=== PATIENT | male | born 1955 | race Caucasian/White ===

== ENCOUNTER → 2023-09-13 14:20 | Outpatient (REF) | payer MEDICARE, OTHER, SELFPAY | LOC: HWRAD 14:20 | PROVIDERS: ATTENDING PHYSICIAN Surgery; FAMILY PHYSICIAN Nurse Practitioner Family | DX: R10.31 Right lower quadrant pain (principal); R10.32 Left lower quadrant pain | CPT/HCPCS: 74177; Q9967 ==

== ENCOUNTER 2024-01-16 09:39 | Emergency (ER) | payer MEDICARE, OTHER, SELFPAY ==
[2024-01-16 09:44] VITALS: BP 153/76
--- NOTE | 2024-01-16 10:50 | ED.GENMED ---
History of Present Illness
General
Chief Complaint: Head Injury
Source: patient
Exam Limitations: none
Time Seen by Provider: 01/16/24 10:10
Nursing documentation reviewed up to this point in time: agreed with
History of Present Illness
History of Present Illness:
The patient is a very pleasant 68-year-old man who presents 5 days after a large branch fell down about 12 feet onto the left side of his head. Patient reports that he was cutting a branch down and it fell right down on him. Patient reports that
he almost lost consciousness but did not. He denies nausea, vomiting, weakness and numbness. Patient reports that he has had headaches on the left side of his head as well as light sensitivity since the injury. He also has now noticed swelling
and drooping of the left eyelid and under the left eye. Patient reports that he should have come sooner but he was observing his symptoms at home. He denies being on any blood thinners including aspirin and Plavix. Patient reports he has been
walking around without dizziness or any issues. He reports he drove here to the hospital. Patient denies acute vision changes of left eye and double vision
Past History
Past History
ED Past Medical History: HTN, Hypercholesterolemia, NIDDM and Other (Chronic low back pain)
ED Past Surgical History: Other (Inguinal hernia repair)
Social History
Tobacco: Non-smoker
Alcohol: Occasional
Drug: None
Personal: Other
Living: alone
Employment: Employed
Family History
Family History: Other (Noncontributory)
Review of Systems
Review of Systems
Allergies reviewed?: Yes
All Other Systems: ROS reviewed and negative except as documented in HPI and ROS
Constitutional: Reports no symptoms
EENT: Reports other (Swelling of left upper and lower eyelid)
Respiratory: Reports no symptoms
Cardiac: Reports no symptoms
ABD/GI: Reports no symptoms
: Reports no symptoms
Musculoskeletal: Reports neck pain (Left-sided neck pain)
Skin: Reports no symptoms
Neurological: Reports headache
Endocrine: Reports no symptoms
Hematologic/Lymphatic: Reports bruising
Psychiatric: Reports no symptoms
Phy Exam
Physical Exam
Physical Exam:
Physical Exam
General: no apparent distress, not acutely ill. Left frontal scalp contusion with overlying scab.
Neck: supple. No midline spine tenderness including cervical spine, thoracic spine and lumbar spine. Mild left lateral soft tissue neck tenderness without deformity or ecchymoses. Ecchymotic left upper eyelid and
significant swelling of left lower eyelid
Heart: s1/s2 regular rate and rhythm, no murmur. equal radial pulses.
Lungs: no acute respiratory distress. clear bilaterally
Abdomen: Soft, nontender
Neuro: alert and orientedx3. no focal neurological deficits. Extraocular muscles intact. PERRL, 5 out of 5 strength in all extremities. Steady gait. No nystagmus. No hyphema seen, no left conjunctival hemorrhage
Skin: Very small superficial abrasion just above left eyebrow
Psychiatric: well kept. interactive and cooperative
Extremities: no edema. no calf tenderness. negative homans. good distal pulses
Course
Orders/Labs/Results
Orders:
Orders
01/16/24 10:44
CT Facial Bones W/o Iv Contras Urgent
Comment:
Reason For Exam: branch fell on head, swelling around L face
CT Head W/o Iv Contrast Urgent
Comment:
Reason For Exam: head injury from 5 days ago
01/16/24 11:03
Acetaminophen [Tylenol] 1,000 mg PO NOW STA
Vital Signs
Initial and Last Documented VS:
Initial Vital Signs
Temp Pulse Resp BP Pulse Ox
98.6 F 69 18 153/76 97
01/16/24 09:44 01/16/24 09:44 01/16/24 09:44 01/16/24 09:44 01/16/24 09:44
Last Documented Vital Signs
Temp Pulse Resp BP Pulse Ox
98.6 F 54 16 127/60 97
01/16/24 09:44 01/16/24 11:35 01/16/24 11:35 01/16/24 11:35 01/16/24 11:35
MDM/Problems Addressed
Differential Diagnosis Includes:
Subdural hematoma, orbital wall fracture, facial contusion
MDM/Problems Addressed:
Patient presents with acute headache, and acute contusion and swelling around his left eye
Chronic conditions affecting care: HTN
Acute Exacerbation and/or Progression of Chronic Illness:
Patient is acutely hypertensive, likely due to pain and anxiety being in the ED
Acute Exacerbation and/or Progression of Chronic Illness: HTN
*Radiology
Radiology exam reviewed: radiology read reviewed
*Pulse Oximetry
Patient hypoxic: no
*EKG
Interpreted by ED Provider?: NA
*Market Basket Maker Interpretation
Rate: Market Basket Maker- N/A
*Critical Care Note
Total Time (30-74mins, 75-104mins- exclusive of procedures): Not Applicable
Data Reviewed
Review of Other/Old Records Reveals: Operative Reports (Reviewed operative report from 2022 when patient underwent inguinal hernia repair surgery)
Source: patient
Patient Management
Social determinants of health affecting care: Strong social support
Escalation/DeEscalation of care consider admission/obs:
Patient continues to look well without any nausea, visual changes, weakness or numbness. Head injury occurred 5 days ago and fortunately CAT scan of head shows no sign of intracranial hemorrhage such as a subdural hematoma.
ED Attending Note
-
Portions of this chart may have been created with voice recognition software.� Occasional wrong word or��sound alike� substitutions may have occurred due to the inherent limitations of voice recognition software.
Discharge Plan
Departure
Patient Disposition: Home (Routine Discharge)
Date of Disposition: 01/16/24
Time of Disposition: 12:36
Patient with high blood pressure during this ER visit?: Yes
Condition: Good
Covid-19: Not Applicable
Discharge Problem:
Closed head injury
Instructions: Head Injury in Adults (DC), BLOOD PRESSURE
Prescriptions:
New
oxycodone 5 mg tablet
5 mg PO BID PRN (Reason: Pain) Qty: 7 0RF
No Action
atorvastatin 10 MG tablet
10 mg PO DAILY
gabapentin 300 MG capsule
600 mg PO .IN A.M.
hydrocodone-acetaminophen 5-325 mg Tablet
1 tab PO Q6H PRN (Reason: discomfort)
terazosin 2 mg Capsule
2 mg PO HS
amlodipine 10 mg Tablet
10 mg PO DAILY
metformin 1,000 mg Tablet
1,000 mg PO BID
gabapentin 300 mg Capsule
300 mg PO .IN AFTERNOON
gabapentin 300 mg Capsule
600 mg PO QPM
lisinopril 5 mg Tablet
5 mg PO DAILY
glipizide 2.5 mg Tablet
2.5 mg PO DAILY
acetaminophen [acetaminophen] 325 mg tablet
650 mg PO Q4HPRN PRN (Reason: mild pain) Qty: 1 0RF
ibuprofen 200 mg tablet
400 - 600 mg PO Q6HPRN PRN (Reason: moderate pain) Qty: 1 0RF
Referrals:
Gwen Ray CRNP [Family Provider] -
Activity Restrictions/Additional Instructions:
Return for any nausea, vomiting or severe dizziness. Take 1000 mg of Tylenol every 4-6 hours for pain.
Interventions
Interventions:
*Risk Screen - Suicide Last Done: 01/16/24 10:14
*General Assessment Last Done: 01/16/24 09:46
*Neglect/Abuse Screening Last Done: 01/16/24 10:14
ED- Fall Risk Assessment Last Done: 01/16/24 10:16
*ED COVID-19 Vaccine History Last Done: 01/16/24 09:46
*Nursing Disposition Last Done: 01/16/24 12:49
ED- Neurological Assessment Last Done: 01/16/24 10:14
ED-Skin Assessment Last Done: 01/16/24 10:14
Discharge Date and Time
Discharge Date/Time: 01/16/24 12:50
Print Language: IVORIAN
[2024-01-16 11:00] VITALS: BP 127/60
[2024-01-16] MEDS: TYLENOL 1000 MG PO (11:09)
[2024-01-16 11:35] VITALS: BP 127/60
== END 2024-01-16 12:50 | disposition home or self-care (01) ==
LOC: EMR 09:39
PROVIDERS: EMERGENCY PHYSICIAN Emergency Medicine; FAMILY PHYSICIAN Nurse Practitioner Family
DX: S09.90XA Unspecified injury of head, initial encounter (principal); S00.03XA Contusion of scalp, initial encounter; R51.9 Headache, unspecified; M54.2 Cervicalgia; W20.8XXA Other cause of strike by thrown, projected or falling object, initial encounter; Y93.H2 Activity, gardening and landscaping; I10 Essential (primary) hypertension; E11.40 Type 2 diabetes mellitus with diabetic neuropathy, unspecified; E78.00 Pure hypercholesterolemia, unspecified; M54.50 Low back pain, unspecified; M19.90 Unspecified osteoarthritis, unspecified site; G89.29 Other chronic pain; Z79.84 Long term (current) use of oral hypoglycemic drugs; Z87.891 Personal history of nicotine dependence; Z88.6 Allergy status to analgesic agent; Z88.8 Allergy status to other drugs, medicaments and biological substances
CPT/HCPCS: 99284; 70450; 70486

== ENCOUNTER → 2024-01-28 07:00 | Outpatient (REF) | payer MEDICARE, OTHER, SELFPAY | LOC: HWRAD 07:00 | PROVIDERS: ATTENDING PHYSICIAN Nurse Practitioner Family | DX: N50.819 Testicular pain, unspecified (principal) | CPT/HCPCS: 76870; 93976 ==

== ENCOUNTER 2024-04-20 07:05 | Emergency (ER) | payer MEDICARE, OTHER, SELFPAY ==
[2024-04-20 07:15] VITALS: BP 144/79
[2024-04-20 08:43] VITALS: BP 160/70
[2024-04-20 08:57] LABS: % Basophils 0.9 % (0-2); % Eosinophils 2.4 % (0-6); % Immature Granulocytes 0.3 % (0-0.5); % Lymphocytes 17.7 % (20.5-51.1); % Monocytes 4.7 % (1.7-9.3); Absolute Basophils 0.1 10^3/uL (0-0.2); Absolute Eosinophils 0.2 10^3/uL (0-0.7); Absolute Lymphocytes 1.1 10^3/uL (1.2-3.4); Absolute Monocytes 0.3 10^3/uL (0.1-0.6); Absolute Neutrophils 4.7 10^3/uL (1.4-6.5); Hematocrit 36.6 % (39.0-52.0); Hemoglobin 12.2 g/dL (13.0-18.0); Mean Corp Hgb Conc. 33.3 g/dL (33.0-37.0); Mean Corpuscular Hgb 31.2 pg (27.0-31.0); Mean Corpuscular Volume 93.6 fL (80.0-94.0); Mean Platelet Volume 9.3 fL (7.4-10.4); Nucleated Red Blood Cells % 0 % (-); Platelet Count 232 10^3/uL (130-400); Red Blood Cell Count 3.91 10^6/uL (4.70-6.10); Red Cell Dist. Width 13.2 % (11.5-14.5); White Blood Cell Count 6.4 10^3/uL (4.8-10.8)
[2024-04-20 08:59] LABS: Urine Albumin Trace (Neg - Trace); Urine Bilirubin 1+ (Negative); Urine Character Clear (Clear); Urine Color Yellow; Urine Glucose Negative (Negative); Urine Ketone Negative (Negative); Urine Leukocyte Negative (Negative); Urine Nitrite Negative (Negative); Urine Occult Blood Negative (Negative); Urine Specific Gravity 1.025 (<1.030); Urine Urobilinogen Negative (Neg - 1+)
[2024-04-20 09:15] LABS: ALT (SGPT) 40 U/L (0-50); AST (SGOT) 41 U/L (17-59); Alkaline Phosphatase 53 U/L (38-126); Blood Urea Nitrogen 33 mg/dl (9-20); Calcium 9.6 mg/dl (8.4-10.2); Carbon Dioxide 26 mmol/L (22-30); Chloride 103 mmol/L (98-107); Glucose 159 mg/dl (70-99); Potassium 4.8 mmol/L (3.5-5.1); Sodium 144 mmol/L (135-145); Total Bilirubin 0.4 mg/dl (0.2-1.3); Total Protein 7.3 g/dl (6.3-8.2); eGFR > 60.00
--- NOTE | 2024-04-20 09:15 | ED.GENMED ---
History of Present Illness
General
Chief Complaint: Musculo-Skeletal Complaint
Time Seen by Provider: 04/20/24 08:06
History of Present Illness
History of Present Illness:
68-year-old male with history of ezm-garaswy-ojwyduyud diabetes presents to the emergency department for evaluation of acute onset right foot drop developing upon waking this morning. States he was ambulating well yesterday, was painting his house
and going up and down a ladder without difficulty. States this morning he nearly fell due to inability to raise the right foot. Has chronic back pain but denies any acute worsening. No saddle anesthesias or loss of urinary function. No fevers or
chills.
Past History
Past History
ED Past Medical History: HTN, Hypercholesterolemia, NIDDM and Other (Chronic low back pain)
ED Past Surgical History: Other (Inguinal hernia repair)
Social History
Tobacco: Non-smoker
Alcohol: Occasional
Drug: None
Personal: Other
Living: alone
Employment: Employed
Family History
Family History: Other (Noncontributory)
Review of Systems
Review of Systems
Allergies reviewed?: Yes
All Other Systems: ROS reviewed and negative except as documented in HPI and ROS
Phy Exam
Physical Exam
Physical Exam:
GEN: Well appearing, NAD, WDWN
HEENT: Oral mucosa moist, no scleral icterus, no nasal congestion
Cardiac: Regular rate
Lung: No respiratory distress, no tachypnea
MSK: No gross deformity or injuries
Skin: Good color, no pallor or jaundice, no rashes
Neuro: AO x3; CN II-XII grossly intact. BUE strength 5/5 in all olivas, sensation intact and symmetric. Significant right foot drop noted, patient unable to maintain right foot dorsiflexion against gravity, otherwise bilateral lower extremity
strength is 5 out of 5 in all olivas. Right patellar reflex diminished
Psych: Calm, cooperative
Course
Orders/Labs/Results
Orders:
Orders
04/20/24 08:27
CT Head W/o Iv Contrast Urgent
Comment:
Reason For Exam: R foot drop/toe paresthesia
04/20/24 08:41
Complete Blood Count/With Diff Urgent
Comprehensive Metabolic Panel Urgent
Urinalysis Reflex To Culture Urgent
Date Specimen was Collected: 04/20/24
Time Specimen was Collected: 08:34
04/20/24 09:10
Lumbar Without Contrast MR [MR Lumbar Without Contrast] Urgent
Comment:
Reason For Exam: acute right foot drop
Recent pill cam endoscopy?: No
04/20/24 13:30
B12 [Vitamin B12] Routine
CRP [C-Reactive Protein] Routine
ESR [Erythrocyte Sed Rate] Routine
Folate Routine
Protein Electrophoresis Reflex [S] Routine
Vitamin B1, Whole Blood [S] Routine
04/20/24 13:31
MRI Brain [MR Brain Without Contrast] Routine
Comment:
Reason For Exam: R foot drop
OK for patient to be off Cardiac Monitoring for MRI: No
Recent pill cam endoscopy?: No
04/20/24 13:42
Code Status As Directed
Resuscitation Status: Full Code
Abnormal Lab Results
04/20/24
08:41
RBC 3.91 L 10^6/uL
(4.70-6.10)
Hgb 12.2 L g/dL
(13.0-18.0)
Hct 36.6 L %
(39.0-52.0)
MCH 31.2 H pg
(27.0-31.0)
Absolute Lymphs (auto) 1.1 L 10^3/uL
(1.2-3.4)
Lymphocytes % 17.7 L %
(20.5-51.1)
BUN 33 H mg/dl
(9-20)
Glucose 159 H mg/dl
(70-99)
Urine Bilirubin 1+ A
(Negative)
04/20/24 08:41
04/20/24 08:41
Vital Signs
Initial and Last Documented VS:
Initial Vital Signs
Temp Pulse Resp BP Pulse Ox
97.6 F 81 16 144/79 98
04/20/24 07:15 04/20/24 07:15 04/20/24 07:15 04/20/24 07:15 04/20/24 07:15
Last Documented Vital Signs
Temp Pulse Resp BP Pulse Ox
97.6 F 85 18 134/86 98
04/20/24 14:12 04/20/24 14:12 04/20/24 11:19 04/20/24 14:12 04/20/24 14:12
MDM/Problems Addressed
MDM/Problems Addressed:
After neurology consultation the patient complained to be admitted after being seen by the hospitalist physician the patient did not want to stay for observation due to financial concerns. I have lengthy discussion with him about the likelihood
that this is severe L5 radiculopathy however cannot completely rule out the possibility of a small brain infarct. I find this to be less likely given the focality of his symptoms. Would recommend he start 81 mg aspirin daily and follow-up with his
primary care physician for brain MRI since he is opting for discharge home, may also benefit from orthopedic evaluation for outpatient EMG. Educated the patient on strict ED return parameters. He reiterated his concern for financial implications
and observation versus admission status after shared decision making the patient will be discharged home
*Critical Care Note
Total Time (30-74mins, 75-104mins- exclusive of procedures): Not Applicable
ED Attending Note
-
Portions of this chart may have been created with voice recognition software.� Occasional wrong word or��sound alike� substitutions may have occurred due to the inherent limitations of voice recognition software.
Discharge Plan
Departure
Patient Disposition: Home (Routine Discharge)
Date of Disposition: 04/20/24
Time of Disposition: 13:54
Admit to: Med/Surg
Patient with high blood pressure during this ER visit?: No
Discharge Problem:
Foot drop, right
Instructions: Foot Drop
Prescriptions:
No Action
atorvastatin 10 MG tablet
10 mg PO DAILY
gabapentin 300 MG capsule
600 mg PO DAILY
terazosin 2 mg Capsule
2 mg PO HS
amlodipine 10 mg Tablet
10 mg PO DAILY
metformin 1,000 mg Tablet
1,000 mg PO BID
gabapentin 300 mg Capsule
300 mg PO NOON
gabapentin 300 mg Capsule
600 mg PO HS
lisinopril 5 mg Tablet
5 mg PO DAILY
glipizide 2.5 mg Tablet
2.5 mg PO DAILY
methotrexate sodium 2.5 mg Tablet
5 mg PO TU
hydroxychloroquine [Plaquenil] 200 mg Tablet
400 mg PO DAILY
hydrocodone-acetaminophen 5-325 mg Tablet
1 tab PO Q6HPRN PRN (Reason: severe pain)
Patient Comments:
called [facility] patient fileld on 04/16/24 #[phone]
Referrals:
Gwen Ray CRNP [Family Provider] -
Activity Restrictions/Additional Instructions:
Follow up with your labor delivery specialist about the findings on your back MRI as this could be contributing to your symptoms
If your symptoms progress, please return to the ER
Interventions
Interventions:
*Risk Screen - Suicide Last Done: 04/20/24 07:15
*General Assessment Last Done: 04/20/24 08:30
*Neglect/Abuse Screening Last Done: 04/20/24 07:15
*ED COVID-19 Vaccine History Last Done: 04/20/24 08:30
*Nursing Disposition Last Done: 04/20/24 14:13
ED-Musculoskeletal Assessment Last Done: 04/20/24 08:30
Discharge Date and Time
Discharge Date/Time: 04/20/24 14:13
Print Language: VIETNAMESE
[2024-04-20 11:19] VITALS: BP 157/80
--- NOTE | 2024-04-20 13:07 | CON.NEURO ---
Consultation
Order
Date of Consultation: 04/20/24
Requesting Provider:
Reason for Consult: R foot drop
CC: foot weakness and numbness
HPI: This is a 68-year-old right-handed man who presented to [facility] on April 12, 2024 with motor and sensory deficits. According to the patient he developed sudden onset right foot weakness and constant numbness upon awakening
today in the morning. He has a history of polyneuropathy and takes gabapentin for intermittent tingling in his toes, but he states that the current tingling is constant and different from his usual. No reports of right arm motor or sensory
deficits, dysarthria or language dysfunction.
Mr. Montiel reports a history of nonradicular chronic back pain, but denies any recent exacerbation or change in the pain. No recent falls, heavy lifting, B symptoms of fever.
ER VS: 144/79-162/70, 82, afebrile
PDMP:no recently prescribed meds
Labs: gluc 159, normal Na, WBC
LS spine MRI wo mary-L4-L5: severe spinal canal stenosis, and severe right neuroforaminal stenosis.
L5-S1: no right neuroforaminal stenosis.
NCS/EMG(09/10/2023)-Mild axonal sensory peripheral polyneuropathy.
PMH: HTN, DLP, DM, RLS, back pain, GIB, SNHL
PSH: Robotic bilateral inguinal hernia repair with mesh.
SH: Lives alone, retired from construction, former smoker, drinks Karri QPM
FH: sister-Hodgkin's lymphoma, brother-stroke in his 60s
All:NAIDs, HCTZ, pantoprazole
ROS:Constitutional: Negative. Negative for chills, fever and unexpected weight change.
HENT: Positive for poor hearing
Eyes: Negative. Negative for photophobia, pain and visual disturbance.
Respiratory: Negative for cough, choking and shortness of breath.
Cardiovascular: Negative for chest pain, palpitations and leg swelling.
Gastrointestinal: Negative for abdominal pain and vomiting.
Endocrine: Negative. Negative for cold intolerance.
Genitourinary: Negative for dysuria, flank pain and urgency.
Musculoskeletal: Negative for back pain, gait problem, neck pain and neck stiffness.
Skin: Negative for rash.
Allergic/Immunologic: Negative. Negative for immunocompromised state.
Neurological: Positive for right foot weakness, numbness, imbalance
Psychiatric/Behavioral: Negative for behavioral problems, confusion and hallucinations.
General: Well developed. In no acute distress.
Cardio: Regular rate and rhythm without murmur. Extremities are without cyanosis or edema.
Neuro:
Mental Status: Alert, oriented to person, place, and date. Normal attention and recall. Good fund of knowledge. Follows complex requests across the midline. Comprehension, naming, and repetition intact. Immediate and delayed recall 3/3.
Cranial Nerves: . Pupils are equally round and reactive to light. EOMs full. Visual olivas full to confrontation. No ptosis. No nystagmus. V1-V3 intact to light touch and pinprick bilaterally, symmetric. Face symmetric. Poor hearing AU. The
palate elevated well. SCMs and traps 5/5. Tongue midline. No dysarthria.
Motor: Normal bulk and tone. No pronator or arm drift. Strength 5/5 throughout, except for R DF 1+/5, foot eversion 0/2, plantar flexion 5-/5. No clonus.
Reflexes: 1+ throughout the upper extremities and 0 knees. 0/2 in AJs. Plantar responses flexor bilaterally.
Sensory: reduced vibration at the R toe
Coordination: No dysmetria or tremor.
Gait: deferred
BL hammer toes and pes cavus
Assessment and Plan:
I. Acute R distal leg weakness. R L5 radiculopathy(the L5 nerve root is the 'traversing' nerve root at the L4-L5 level where severe stenosis is identified) vs common peroneal neuropathy at fibular head vs sciatic neuropathy. Rule out embolic infarct
in the left precentral gyrus given the acuity of the symptoms onset.
II. Severe L4-L5 central spinal canal stenosis.
III. BL L2-S1 radiculopathy.
-Fall precautions
-Brain MRI wo mary
-OP NCS/EMG of RUE/LE
-Please check vit B12, folate, B1, SPEP/IF, ESR, CRP, Lyme
-Aspirin 81 mg QD of Plavix 75 mg QD if Aspirin intolerant
-PT
-DVT prophylaxis
I personally reviewed all radiology and labs along with past medical records pertinent to current medical problems. Total time spent in patient care is 62 minutes.
Thank you for allowing us to participate in the care of this patient. We will continue to follow. Please do not hesitate to contact us with any questions or concerns.
Subjective/Objective
Subjective Data
Date of Service: April 20, 2024
Objective Data
Vital Signs
Temp Pulse Resp BP Pulse Ox
36.4 C 85 18 157/80 98
04/20/24 07:15 04/20/24 11:19 04/20/24 11:19 04/20/24 11:19 04/20/24 11:19
Lab Results
04/20/24 08:41
04/20/24 08:41
Sodium 144 mmol/L (135-145) 04/20/24 08:41
Potassium 4.8 mmol/L (3.5-5.1) 04/20/24 08:41
BUN 33 mg/dl (9-20) H 04/20/24 08:41
Glucose 159 mg/dl (70-99) H 04/20/24 08:41
Calcium 9.6 mg/dl (8.4-10.2) 04/20/24 08:41
Patient Allergies
hydrochlorothiazide Allergy (Mild, Verified 04/20/24 07:19)
Unknown
aspirin Allergy (Verified 04/20/24 07:19)
Upper GI bleed
ibuprofen Allergy (Verified 04/20/24 07:19)
Upper GI bleed
pantoprazole Allergy (Verified 04/20/24 07:19)
SARAH
'some statin' Allergy (Uncoded 04/20/24 07:19)
leg cramps
Medications
-
Home Medications
�Medication �Instructions �Recorded
atorvastatin 10 mg tablet 10 mg PO DAILY High cholesterol 01/01/19
gabapentin 300 mg capsule 600 mg PO .IN A.M. 01/01/19
amlodipine 10 mg tablet 10 mg PO DAILY 06/14/23
gabapentin 300 mg capsule 300 mg PO .IN AFTERNOON 06/14/23
gabapentin 300 mg capsule 600 mg PO QPM 06/14/23
glipizide 2.5 mg tablet 2.5 mg PO DAILY 06/14/23
hydrocodone 5 mg-acetaminophen 325 1 tab PO Q6H PRN discomfort 06/14/23
mg tablet
lisinopril 5 mg tablet 5 mg PO DAILY 06/14/23
metformin 1,000 mg tablet 1,000 mg PO BID 06/14/23
terazosin 2 mg capsule 2 mg PO HS 06/14/23
acetaminophen 325 mg tablet 650 mg (2 x 325 mg) PO Q4HPRN PRN 06/19/23
mild pain #1 tab
ibuprofen 200 mg tablet 400 - 600 mg (2 - 3 x 200 mg) PO 06/19/23
Q6HPRN PRN moderate pain #1 tab
oxycodone 5 mg tablet 5 mg PO BID PRN Pain #7 tabs 01/16/24
[2024-04-20 14:12] VITALS: BP 134/86
[2024-04-20 15:19] LABS: Erythrocyte Sed Rate 13 mm/hour (0-20)
== END 2024-04-20 14:13 | disposition home or self-care (01) ==
LOC: EMR 07:05
PROVIDERS: Physician Assistant; EMERGENCY PHYSICIAN Emergency Medicine; FAMILY PHYSICIAN Nurse Practitioner Family; OTHER PHYSICIAN Psychiatry & Neurology Neurology
DX: M21.371 Foot drop, right foot (principal); M48.061 Spinal stenosis, lumbar region without neurogenic claudication; E11.9 Type 2 diabetes mellitus without complications; I10 Essential (primary) hypertension; E78.00 Pure hypercholesterolemia, unspecified; Z59.86 Financial insecurity; Z87.891 Personal history of nicotine dependence
CPT/HCPCS: 99284; 70450; 72148; 80053; 81003; 85025; 85652

== ENCOUNTER → 2024-05-18 07:32 | Outpatient (REF) | payer MEDICARE, OTHER, SELFPAY | LOC: EMG 07:32 | PROVIDERS: ATTENDING PHYSICIAN Physical Medicine & Rehabilitation; FAMILY PHYSICIAN Nurse Practitioner Family | DX: R20.0 Anesthesia of skin (principal) | CPT/HCPCS: 95886; 95910 ==

== ENCOUNTER 2025-01-13 12:12 | Emergency (ER) | payer MEDICARE, OTHER, SELFPAY ==
[2025-01-13 12:18] VITALS: BP 161/82
[2025-01-13 12:42] VITALS: BMI 29.1
[2025-01-13 12:57] LABS: Hematocrit 38.8 % (39.0-52.0); Hemoglobin 12.7 g/dL (13.0-18.0); Mean Corp Hgb Conc. 32.7 g/dL (33.0-37.0); Mean Corpuscular Volume 97.7 fL (80.0-94.0); Nucleated Red Blood Cells % 0 % (-); Platelet Count 246 10^3/uL (130-400); Red Cell Dist. Width 13.2 % (11.5-14.5)
[2025-01-13] MEDS: TORADOL 15 MG IV (13:09)
[2025-01-13 13:16] LABS: Blood Urea Nitrogen 33 mg/dl (9-20); Calcium 9.5 mg/dl (8.4-10.2); Carbon Dioxide 25 mmol/L (22-30); Chloride 97 mmol/L (98-107); Estimated Creatinine Clearance 69 ml/min; Glucose 176 mg/dl (70-99); Sodium 129 mmol/L (135-145); eGFR > 60.00
--- NOTE | 2025-01-13 13:16 | ED.GENMED ---
History of Present Illness
General
Chief Complaint: Flank Pain
Time Seen by Provider: 01/13/25 12:38
History of Present Illness
History of Present Illness:
69-year-old male with prior history of kidney stone and chronic back pain presenting for acute onset of left flank pain. Patient reports symptoms started this morning. Pain started in the left flank and is radiating to his abdomen into his
testicle. Last kidney stone was several years ago. Denies ever requiring any surgery for his kidney stones. Denies any fever. Denies any urinary complaints. Denies chest pain or difficulty breathing. He took a hydrocodone, which she takes for
his chronic back pain, prior to arrival with some relief of pain. Denies nausea or vomiting. Reports surgical history of inguinal hernia repair. Denies additional acute medical complaints
Past History
Past History
ED Past Medical History: HTN, Hypercholesterolemia, NIDDM and Other (Chronic low back pain)
ED Past Surgical History: Other (Inguinal hernia repair)
Social History
Tobacco: Non-smoker
Alcohol: Occasional
Drug: None
Personal: Other
Living: alone
Employment: Employed
Family History
Family History: Other (Noncontributory)
Phy Exam
Physical Exam
Physical Exam:
General: Well-appearing, no clinical signs of dehydration, nontoxic and in no acute distress
HEENT: protecting airway
Neck: appears supple
CV: Normal heart rate, regular rhythm, no evidence of cyanosis
Resp: No accessory muscle use, no increased work of breathing
Abd: Soft and non-distended, no tenderness to palpation, left CVA tenderness
Extremities: No deformities, no swelling, no erythema, pulses and sensation intact
Neuro: alert, no focal neurologic deficit
: deferred
Rectal: deferred
Psych: Normal affect
Skin: Intact
Course
Orders/Labs/Results
Orders:
Orders
01/13/25 12:44
Basic Metabolic Panel Urgent
Complete Blood Count/With Diff Urgent
Urinalysis Reflex To Culture Urgent
Date Specimen was Collected: 01/13/25
Time Specimen was Collected: 12:36
Urine Microscopic Reflex Cult Urgent
01/13/25 12:54
Ketorolac [Toradol] 15 mg IV NOW STA
01/13/25 13:39
CT Abd/pelvis W Iv Cont Urgent
Comment:
Reason For Exam: L-flank pain
01/13/25 14:52
HYDROmorphone [Dilaudid] 1 mg IV NOW STA
01/13/25 15:29
CMP [Comprehensive Metabolic Panel] Urgent
Abnormal Lab Results
01/13/25 01/13/25
12:44 15:29
RBC 3.97 L 10^6/uL
(4.70-6.10)
Hgb 12.7 L g/dL
(13.0-18.0)
Hct 38.8 L %
(39.0-52.0)
MCV 97.7 H fL
(80.0-94.0)
MCH 32.0 H pg
(27.0-31.0)
MCHC 32.7 L g/dL
(33.0-37.0)
Absolute Neuts (auto) 6.6 H 10^3/uL
(1.4-6.5)
Absolute Lymphs (auto) 0.6 L 10^3/uL
(1.2-3.4)
Neutrophils % 84.4 H %
(42.2-75.2)
Lymphocytes % 7.3 L %
(20.5-51.1)
Sodium 129 L mmol/L 130 L mmol/L
(135-145) (135-145)
Chloride 97 L mmol/L
(98-107)
BUN 33 H mg/dl 29 H mg/dl
(9-20) (9-20)
Glucose 176 H mg/dl 124 H mg/dl
(70-99) (70-99)
Urine RBC 3-6 A /HPF
(0-2)
Urine Bacteria (Reflex) Few A
(Negative)
Urine Albumin (Reflex) 1+ A
(Neg - Trace)
01/13/25 12:44
01/13/25 15:29
Vital Signs
Initial and Last Documented VS:
Initial Vital Signs
Temp Pulse Resp BP Pulse Ox
97.9 F 73 18 161/82 96
01/13/25 12:18 01/13/25 12:18 01/13/25 12:18 01/13/25 12:18 01/13/25 12:18
Last Documented Vital Signs
Temp Pulse Resp BP Pulse Ox
98.0 F 68 18 143/94 95
01/13/25 15:16 01/13/25 15:16 01/13/25 15:16 01/13/25 15:16 01/13/25 15:16
MDM/Problems Addressed
MDM/Problems Addressed:
69-year-old male with prior history of kidney stones presenting for left flank pain. Vital signs on arrival are significant for high blood pressure.
On exam, patient resting comfortably, no acute distress or discomfort. Symptoms appear most consistent with kidney stone. Patient afebrile, nontoxic, lower suspicion for infected stone. No significant tenderness to abdomen without concern for
severe intra-abdominal process or infection. Patient is tender to the left flank, possible musculoskeletal quality of pain. Known history of chronic back pain. Plan for laboratory analysis, urinalysis, CT abdominal imaging
16:30 -labs without any acute pathology. On reassessment, patient reports that he is feeling much better. Suspect that he may have passed a kidney stone versus musculoskeletal pain. On reassessment, did assess patient's testicles given no
evidence of kidney stone, normal appearance, no swelling, no significant tenderness. Labs show evidence of hyponatremia at 130. Patient reports that he drank 5 water bottles prior to arrival to try and flush his kidneys to pass the stone. Suspect
that hyponatremia is from patient's water consumption. Ultimately feel stable for discharge. Advised outpatient follow-up. Y return precautions discussed and patient verbalized understanding
*Pulse Oximetry
SaO2: 96
Oxygen Mode of Delivery: Room air
Patient hypoxic: no
*Critical Care Note
Total Time (30-74mins, 75-104mins- exclusive of procedures): Not Applicable
ED Attending Note
-
Portions of this chart may have been created with voice recognition software.� Occasional wrong word or��sound alike� substitutions may have occurred due to the inherent limitations of voice recognition software.
Discharge Plan
Departure
Prescriptions:
No Action
atorvastatin 10 MG tablet
10 mg PO DAILY
gabapentin 300 MG capsule
600 mg PO DAILY
terazosin 2 mg Capsule
2 mg PO HS
amlodipine 10 mg Tablet
10 mg PO DAILY
metformin 1,000 mg Tablet
1,000 mg PO BID
gabapentin 300 mg Capsule
300 mg PO NOON
gabapentin 300 mg Capsule
600 mg PO HS
lisinopril 5 mg Tablet
5 mg PO DAILY
glipizide 2.5 mg Tablet
2.5 mg PO DAILY
methotrexate sodium 2.5 mg Tablet
5 mg PO TU
hydroxychloroquine [Plaquenil] 200 mg Tablet
400 mg PO DAILY
hydrocodone-acetaminophen 5-325 mg Tablet
1 tab PO Q6HPRN PRN (Reason: severe pain)
Patient Comments:
called [facility] patient fileld on 04/16/24 #[phone]
Referrals:
Gwen Ray CRNP [Family Provider, Family Practice]
Interventions
Interventions:
*Risk Screen - Suicide Last Done: 01/13/25 12:15
*General Assessment Last Done: 01/13/25 12:15
*Neglect/Abuse Screening Last Done: 01/13/25 12:43
*ED- Fall Risk Assessment Last Done: 01/13/25 12:43
*ED COVID-19 Vaccine History Last Done: 01/13/25 12:43
FH-Qqusnj-Whvhrmcqof Assessment Last Done: 01/13/25 13:17
ED-Male Genitourinary Assessment Last Done: 01/13/25 13:17
Discharge Date and Time
Print Language: GREEK
[2025-01-13 13:17] LABS: Urine Character Clear (Clear)
[2025-01-13 13:32] LABS: Urine Squamous Cell 16-20 /LPF (Few)
[2025-01-13 15:16] VITALS: BP 143/94
[2025-01-13] MEDS: DILAUDID 1 MG IV (15:20)
[2025-01-13 15:51] LABS: ALT (SGPT) 20 U/L (0-50); AST (SGOT) 21 U/L (17-59); Albumin 4.8 g/dl (3.5-5.0); Alkaline Phosphatase 47 U/L (38-126); Blood Urea Nitrogen 29 mg/dl (9-20); Calcium 9.4 mg/dl (8.4-10.2); Carbon Dioxide 23 mmol/L (22-30); Chloride 101 mmol/L (98-107); Estimated Creatinine Clearance 69 ml/min; Glucose 124 mg/dl (70-99); Potassium 5.0 mmol/L (3.5-5.1); Sodium 130 mmol/L (135-145); Total Protein 7.2 g/dl (6.3-8.2); eGFR > 60.00
[2025-01-13 16:37] VITALS: BP 158/100
== END 2025-01-13 16:40 | disposition home or self-care (01) ==
LOC: EMR 12:12
PROVIDERS: Emergency Medicine; EMERGENCY PHYSICIAN Student in an Organized Health Care Education/Training Program; FAMILY PHYSICIAN Nurse Practitioner Family
DX: R10.9 Unspecified abdominal pain (principal); E87.1 Hypo-osmolality and hyponatremia; I10 Essential (primary) hypertension; E78.00 Pure hypercholesterolemia, unspecified; E11.9 Type 2 diabetes mellitus without complications; G89.29 Other chronic pain; Z87.442 Personal history of urinary calculi
CPT/HCPCS: 96374; 96375; 99284; 74177; 80048; 80053; 81003; 81015; 85025; Q9967

== ENCOUNTER → 2025-01-20 14:17 | Outpatient (REF) | payer MEDICARE, OTHER, SELFPAY | LOC: HWRAD 14:17 | PROVIDERS: ATTENDING PHYSICIAN Nurse Practitioner Family | DX: N50.812 Left testicular pain (principal) | CPT/HCPCS: 76870; 93976 ==

== ENCOUNTER 2025-05-05 17:08 | Emergency (ER) | payer MEDICARE, OTHER, SELFPAY ==
[2025-05-05 17:11] VITALS: BP 163/79
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
== END 2025-05-05 19:27 | disposition home or self-care (01) ==
LOC: EMR 17:08
PROVIDERS: EMERGENCY PHYSICIAN Student in an Organized Health Care Education/Training Program; FAMILY PHYSICIAN Nurse Practitioner Family
DX: S61.213A Laceration without foreign body of left middle finger without damage to nail, initial encounter (principal); W23.0XXA Caught, crushed, jammed, or pinched between moving objects, initial encounter; E11.9 Type 2 diabetes mellitus without complications; E78.00 Pure hypercholesterolemia, unspecified; I10 Essential (primary) hypertension; G89.29 Other chronic pain
CPT/HCPCS: 12001; 99283; 73140

== ENCOUNTER → 2025-05-19 06:31 | Outpatient (REF) | payer MEDICARE, OTHER, SELFPAY | LOC: RAD 06:31 | PROVIDERS: ATTENDING PHYSICIAN Student in an Organized Health Care Education/Training Program; FAMILY PHYSICIAN Nurse Practitioner Family | DX: I73.9 Peripheral vascular disease, unspecified (principal) | CPT/HCPCS: 93922; 93925 ==